=== PATIENT | female | born 1945 | race Two or more races ===

== ENCOUNTER 2022-09-12 12:28 | Outpatient (CLI) | payer OTHER | END 2022-09-12 13:06 | disposition home or self-care (01) | LOC: RAD 12:28 | PROVIDERS: ATTEND Surgery | DX: K59.00 Constipation, unspecified (principal) ==

== ENCOUNTER 2024-07-24 06:07 | Day surgery (SDC) | payer OTHER ==
[2024-07-24] MEDS ORDERED: FLUMAZENIL 0.5 MG/5 ML ML IV STA (12:39)
[2024-07-24] MEDS ORDERED: fentaNYL CITRATE 50 MCG/ML AMPUL IV PUSH ONE (12:45)
[2024-07-24] MEDS ORDERED: MIDAZOLAM HCL 2 MG/2 ML VIAL IV ONE (12:45)
[2024-07-24] MEDS ORDERED: ONDANSETRON HCL 2 MG/ML VIAL IV ONE (12:45)
== END 2024-07-24 14:30 | disposition home or self-care (01) ==
LOC: AMB-ENDOS 06:07
PROVIDERS: ATTEND Colon & Rectal Surgery
DX: R15.9 Full incontinence of feces (principal); K57.30 Diverticulosis of large intestine without perforation or abscess without bleeding; Z88.6 Allergy status to analgesic agent; Z88.8 Allergy status to other drugs, medicaments and biological substances

== ENCOUNTER 2024-11-06 07:41 | Day surgery (SDC) | payer OTHER ==
[2024-11-06] MEDS ORDERED: ONDANSETRON HCL 2 MG/ML VIAL IV ONE (11:15)
[2024-11-06] MEDS ORDERED: MIDAZOLAM HCL 2 MG/2 ML VIAL IV ONE (11:15)
[2024-11-06] MEDS ORDERED: fentaNYL CITRATE 50 MCG/ML AMPUL IV PUSH ONE (11:15)
[2024-11-06] MEDS ORDERED: DIPHENHYDRAMINE HCL 50 MG/ML VIAL 1ML IV ONE (11:15)
== END 2024-11-06 12:20 | disposition home or self-care (01) ==
LOC: AMB-ENDOS 07:41
PROVIDERS: ATTEND Colon & Rectal Surgery
DX: K63.5 Polyp of colon (principal); K62.1 Rectal polyp; K57.30 Diverticulosis of large intestine without perforation or abscess without bleeding; Z88.8 Allergy status to other drugs, medicaments and biological substances

== ENCOUNTER 2025-02-24 11:00 | Day surgery (SDC) | payer OTHER ==
[2025-02-20 08:36] LABS: BASO % 0.7 % (0.1-1.2); EOS # 0.11 (0.04-0.54); EOS % 2.0 % (0.7-7.0); LYMPH # 2.37 (1.18-3.74); LYMPH % 43.2 % (19.3-53.1); MEAN PLATELET VOLUME 9.40 fl (9.4-12.4); MONO # 0.36 (0.24-0.82); MONO % 6.6 % (4.7-12.5); NEUT # 2.58 (1.56-6.13); NEUT % 47.0 % (34.0-71.1); RED CELL DISTRIBUTION WIDTH 12.2 % (11.6-14.4)
[2025-02-20 08:41] VITALS: BP 150/73
[2025-02-20 08:43] LABS: URINE APPEARANCE Cloudy; URINE BILIRRUBIN Negative (NEGATIVE); URINE BLOOD Moderate; URINE COLOR Yellow; URINE EPITHELIAL CELLS 9.0 uL (0.0-38.8); URINE KETONE Negative (NEGATIVE); URINE LEUKOCYTE Trace; URINE NITRATE Negative; URINE PROTEIN Negative (NEGATIVE); URINE RBC 66.4 uL (0.0-20.8); URINE UROBILINOGEN 0.2 E.U./dl; URINE WBC 53.0 uL (0.0-23.2)
[2025-02-20 08:48] LABS: URINE BACTERIA > 9821.5 uL (0.0-1933); URINE CAST 0.14 uL (0.0-1.40); URINE GLUCOSE 500 MG/DL (NEGATIVE)
[2025-02-20 09:02] LABS: INR 0.98
[2025-02-20 09:40] LABS: ALT/SGPT 21.0 U/L (12-78); AST/SGOT 19.0 U/L (15-37); BILIRUBIN TOTAL 0.52 mg/dL (0.3-1.2); BUN CREA RATIO 19.0 (7.0-25.0); CREATININE SERUM 0.84 mg/dL (0.55-1.02); GFR 65.74; GLOBULINA 3.9 G/DL (2.4-3.5); OSMOLALITY SERUM 288.0 MOSM/KG (275-295)
[2025-02-20 09:44] LABS: GLUCOSE FASTING 266.0 mg/dL (65-100)
[2025-02-24 10:58] LABS: BUN CREA RATIO 17.0 (7.0-25.0); CREATININE SERUM 0.92 mg/dL (0.55-1.02); GFR 59.19; OSMOLALITY SERUM 289.0 MOSM/KG (275-295)
[2025-02-24 11:00] LABS: GLUCOSE FASTING 277.0 mg/dL (65-100)
[~2025-02-24 11:00] MED LIST: AMLODIPINE-OLM1 EAC2 PO; HUMALOG100 UNIT/2; LANTUS SOL100 UNIT/1; LEVO-T25 MCG PO; PROTONIX40 MG PO; VASOTEC2.5 MG PO
[2025-02-24] MEDS ORDERED: ERTAPENEM SODIUM 1,000 MG VIAL ONE (12:47)
[2025-02-24] MEDS ORDERED: BUPIVACAINE HCL/MPF 0.5% 30ML VIAL ONE (12:47)
[2025-02-24] MEDS ORDERED: BUPIVACAINE HCL 30 ML VIAL IJ ONE (14:00)
[2025-02-24] MEDS ORDERED: ERTAPENEM SODIUM 1,000 MG VIAL IV ONE (14:00)
[2025-02-24] MEDS ORDERED: INSULIN REGULAR, HUMAN 1,000 UNIT/10 ML UNITS IV ONE (14:15)
== END 2025-02-24 17:00 | disposition home or self-care (01) ==
LOC: CIR.AMB 11:00
PROVIDERS: ATTEND Colon & Rectal Surgery
DX: R15.9 Full incontinence of feces (principal); R32 Unspecified urinary incontinence; Z88.0 Allergy status to penicillin; Z88.8 Allergy status to other drugs, medicaments and biological substances
CPT/HCPCS: 64581; 95971; C1778

== ENCOUNTER 2025-03-10 06:00 | Day surgery (SDC) | payer OTHER ==
[2025-03-10] MEDS ORDERED: ERTAPENEM SODIUM 1,000 MG VIAL ONE (06:54)
[2025-03-10] MEDS ORDERED: LIDOCAINE HCL 1%/EPINEPHRINE 20ML VIAL IJ ONE (07:06)
[2025-03-10] MEDS ORDERED: BUPIVACAINE HCL/MPF 0.5% 30ML VIAL ONE (07:06)
== END 2025-03-10 10:40 | disposition home or self-care (01) ==
LOC: CIR.AMB 06:00
PROVIDERS: ATTEND Colon & Rectal Surgery
DX: R15.9 Full incontinence of feces (principal); R32 Unspecified urinary incontinence
CPT/HCPCS: 64590; C1767